=== PATIENT | female | born 1990 | race Caucasian/White ===

== ENCOUNTER 2016-03-04 19:24 | Emergency (ER) | payer MEDICAID, OTHER ==
[2016-03-04] MEDS ORDERED: PROPARACAINE 0.5% OPHTH DROPS 15 ML ONE (19:35)
== END 2016-03-04 19:57 | disposition home or self-care (01) ==
DX: B30.9 Viral conjunctivitis, unspecified (principal)
CPT/HCPCS: 99283; J3490

== ENCOUNTER 2016-05-21 15:30 | Outpatient (CLI) | payer MEDICAID | END 2016-05-21 15:31 | disposition home or self-care (01) | DX: J34.1 Cyst and mucocele of nose and nasal sinus (principal) ==

== ENCOUNTER 2016-06-08 18:48 | Outpatient (CLI) | payer MEDICAID | END 2016-06-08 18:49 | disposition home or self-care (01) | DX: J32.0 Chronic maxillary sinusitis (principal); J34.2 Deviated nasal septum; R51 Headache ==